=== PATIENT | male | born 1990 | race African-American/Black ===

== ENCOUNTER 2016-04-29 06:34 | Emergency (ER) | payer MEDICAID ==
[~2016-04-29] VITALS: Ht 185.4 cm; Wt 69.5 kg
[2016-04-29 06:37] VITALS: Ht 185.4 cm; Wt 69.5 kg
[2016-04-29] MEDS ORDERED: ONDANSETRON (ODT) 4 MG TAB ODT STA (06:55)
[2016-04-29] MEDS ORDERED: DICYCLOMINE 10 MG CAP PO ONE (07:00)
[2016-04-29 07:21] LABS: ADD UMIC YES; URINE BILIRUBIN (Dip) 1+ (NEGATIVE); URINE BLOOD (Dip) TRACE (NEGATIVE); URINE COLOR YELLOW (YELLOW); URINE GLUCOSE (Dip) NEGATIVE (NEGATIVE); URINE KETONES (Dip) NEGATIVE (NEGATIVE); URINE LEUKOCYTE ESTERASE (Dip) 2+ (NEGATIVE); URINE NITRITE (Dip) NEGATIVE (NEGATIVE); URINE TOTAL PROTEIN (Dip) TRACE (NEGATIVE); URINE UROBILINOGEN (Dip) 0.2 E.U./dL (0.1-1.0)
[2016-04-29 07:23] LABS: HEMATOCRIT 48.1 % (42.0-52.0); HEMOGLOBIN 15.8 g/dl (14.0-18.0); MEAN CORPUSCULAR HEMOGLOBIN 28.2 pg (29.0-33.0); MEAN CORPUSCULAR HGB CONC 32.9 g/dl (32.0-37.0); MEAN CORPUSCULAR VOLUME 85.6 fl (82.0-101.0); MEAN PLATELET VOLUME 8.5 fl (7.4-10.4); NUCLEATED RED BLOOD CELLS% 2.6 /100WBC (0.0-0.0); PLATELET COUNT 215 10^3/UL (140-440); RED BLOOD COUNT 5.61 10^6/ul (4.70-6.10); RED CELL DISTRIBUTION WIDTH 14.1 % (11.5-14.5)
--- NOTE | 2016-04-29 07:25 | ERD ---
ER Documentation Chief Complaint Date/Time DATE: 04/29/16 TIME: 07:23 Chief Complaint Vomiting and diarrhea HPI 26-year-old male with history of asthma comes in with 5 day history of vomiting , diarrhea and abdominal cramping after [facility]. Patient states that his right vomiting has improved, he continues to have loose stools, nonbloody. He has had nonbilious emesis, and only continuing mild nausea at this time. He denies fevers or chills. ROS All systems reviewed and are negative except as per history of present illness. Medications Home Meds Active Scripts Ciprofloxacin Hcl* (Ciprofloxacin Hcl*) 500 Mg Tablet, 500 MG PO BID for 7 Days , TAB Prov:PRADEEP EM PA-C 04/29/16 Ondansetron Hcl* (Zofran*) 4 Mg Tab, 4 MG PO Q4H Y for NAUSEA AND OR VOMITING, # 12 TAB Prov:PRADEEP EM PA-C 04/29/16 Dicyclomine Hcl* (Bentyl*) 10 Mg Capsule, 10 MG PO QID, #20 CAP Prov:PRADEEP EM PA-C 04/29/16 PMhx/Soc Medical and Surgical Hx: pt denies Medical Hx, pt denies Surgical Hx Hx Alcohol Use: No Hx Substance Use: No Hx Tobacco Use: No Physical Exam Vitals Vital Signs Date Time Temp Pulse Resp B/P Pulse Ox O2 Delivery O2 Flow Rate FiO2 04/29/16 06:37 97.8 90 19 124/58 98 Physical Exam General: Well-developed, well-nourished. The patient appears in no acute distress. HEENT: Head is normocephalic, atraumatic. No scleral icterus. Pupils are equal , round, and reactive. Oral mucous membranes are moist. No pharyngeal erythema. Neck: Supple. Nontender. Lungs: Clear to auscultation. Normal air movement. Heart: Regular rate and rhythm. S1 and S2 are normal. No murmurs, gallops, or rubs. Abdomen: Soft, nontender, nondistended. Bowel sounds are normoactive. Extremities: No clubbing or cyanosis. Normal pulses. Moving extremities x 4. No weakness. Neurologic: Alert and oriented 3. No focal deficits. Skin: Normal turgor. No rash or lesions. Result Diagram: 04/29/16 0707 04/29/16 0707 Results 24 hrs Laboratory Tests Test 04/29/16 07:07 Alanine Aminotransferase (ALT/SGPT) 27IU/L Albumin 4.1g/dl Albumin/Globulin Ratio 1.02 Alkaline Phosphatase 83IU/L Anion Gap 20 Aspartate Amino Transf (AST/SGOT) 22IU/L Basophils # Pending Basophils % Pending Blood Morphology Comment Blood Urea Nitrogen 10mg/dl Calcium Level 9.8mg/dl Carbon Dioxide Level 30mmol/L Chloride Level 102mmol/L Creatinine 1.01mg/dl Direct Bilirubin 0.00mg/dl Eosinophils # Pending Eosinophils % Pending Globulin 4.00g/dl Glucose Level 84mg/dl Hematocrit 48.1% Hemoglobin 15.8g/dl Indirect Bilirubin 0.2mg/dl Lipase 18U/L Lymphocytes # Pending Lymphocytes % Pending Mean Corpuscular Hemoglobin 28.2pg Mean Corpuscular Hemoglobin Concent 32.9g/dl Mean Corpuscular Volume 85.6fl Mean Platelet Volume 8.5fl Monocytes # Pending Monocytes % Pending Neutrophils # Pending Neutrophils % Pending Nucleated Red Blood Cells # Pending Nucleated Red Blood Cells % Pending Platelet Count 42622^3/UL Potassium Level 4.5mmol/L Red Blood Count 5.6110^6/ul Red Cell Distribution Width 14.1% Sodium Level 147mmol/L Total Bilirubin 0.2mg/dl Total Protein 8.1g/dl Urine Bacteria MANY Urine Bilirubin 1+ Urine Clarity CLEAR Urine Color YELLOW Urine Glucose NEGATIVE% Urine Hemoglobin TRACE Urine Ictotest NEGATIVE Urine Ketones NEGATIVE Urine Leukocyte Esterase 2+ Urine Microscopic RBC 10-25/HPF Urine Microscopic WBC >50/HPF Urine Nitrite NEGATIVE Urine Specific [place] >=1.030 Urine Total Protein TRACE Urine Urobilinogen 0.2 E.U./dL Urine pH 5.5 White Blood Count 6.010^3/ul Current Medications Medications (Trade) Dose Ordered Sig/[place] Route PRN Reason Start Time Stop Time Status Last Admin Dose Admin Dicyclomine HCl (Bentyl) 20 mg ONCE ONCE PO 04/29/16 07:00 04/29/16 07:01 DC 04/29/16 07:03 Ondansetron HCl (Zofran Odt) 4 mg ONCE STAT ODT 04/29/16 06:55 04/29/16 06:56 DC 04/29/16 07:03 Procedures/MDM ED course: He was given Bentyl and Zofran. MDM: 26-year-old male comes in with nausea, vomiting and diarrhea for the past 5 days. Patient has evidence of a urinary tract infection with 50 white blood cells in his urine analysis and 2+ leukocytes. No evidence of Sirs criteria or sepsis. I discussed these findings my attending physician, it was advised to place the patient on Cipro given that it may be also related to a foodborne illness. Differentials include gastritis, gastroenteritis, diverticulitis, appendicitis, enteritis, food poisoning. Patient will be treated based on his history of 5 days after [facility] the [facility]. Departure Diagnosis: Primary Impression: Vomiting and diarrhea Condition: PRADEEP Brady PA-C Apr 29, 2016 07:25
[2016-04-29] MEDS ORDERED: AZIT500T3 PO (07:29)
[2016-04-29] MEDS ORDERED: DICY10CA60 PO (07:29)
[2016-04-29] MEDS ORDERED: ONDA-43 PO (07:29)
[2016-04-29 07:34] LABS: ALBUMIN 4.1 g/dl (3.3-4.9)
[2016-04-29 07:35] LABS: POTASSIUM 4.5 mmol/L (3.5-5.1)
[2016-04-29 07:36] LABS: CREATININE 1.01 mg/dl (0.61-1.24)
[2016-04-29 07:37] LABS: ALBUMIN/GLOBULIN RATIO 1.02; BILIRUBIN,INDIRECT 0.2 mg/dl (0-1.1); BILIRUBIN,TOTAL 0.2 mg/dl (0.2-1.3); TOTAL PROTEIN 8.1 g/dl (6.1-8.1)
[2016-04-29 07:38] LABS: CALCIUM 9.8 mg/dl (8.4-10.2)
[2016-04-29 07:46] LABS: CONDITION 1; LH ANALYZER COMMENTS 1; NUCLEATED RED BLOOD CELLS # 0.2 10^3/ul (0.0-0.0); SUSPECT 1
[2016-04-29 08:02] LABS: ICTOTEST NEGATIVE (NEGATIVE)
[2016-04-29 08:03] LABS: BACTERIA,URINE MANY
[2016-04-29] MEDS ORDERED: CIPR500T4 PO (08:16)
[2016-04-29 10:41] LABS: LYMPHOCYTES # 2.2 10^3/ul (0.8-2.9); MONOCYTE # 0.7 10^3/ul (0.3-0.9); NEUTROPHIL # 2.2 10^3/ul (1.6-7.5)
[2016-04-29 10:42] LABS: ANISOCYTOSIS 1+; HYPOCHROMASIA 1+
== END 2016-04-29 08:30 | disposition home or self-care (01) ==
LOC: FTE 06:34
DX: R11.2 Nausea with vomiting, unspecified (principal); R19.7 Diarrhea, unspecified; J45.909 Unspecified asthma, uncomplicated
CPT/HCPCS: 36415; 80053; 81001; 83690; 85025; Z7502; Z7610; 81003; 99284